=== PATIENT | male | born 1950 | race African-American/Black ===

== ENCOUNTER 2016-07-25 04:57 | Day surgery (SDC) | payer MEDICARE, OTHER ==
[~2016-07-25 04:57] MED LIST: FLOMAX4 PO; LOTENSIN HCT1 TA2 PO; MULTI-VIT HP PO; NEUR300 PO; ULTRAM50 PO; ZOCOR10 PO
== END 2016-07-25 09:59 | disposition home or self-care (01) ==
LOC: SDC 04:57
PROVIDERS: Orthopaedic Surgery
PROC: 3E0R3BZ Introduction of Anesthetic Agent into Spinal Canal, Percutaneous Approach (ICD-10-PCS; 2016-07-25)
PROC: 3E0R33Z Introduction of Anti-inflammatory into Spinal Canal, Percutaneous Approach (ICD-10-PCS; principal; 2016-07-25 08:00)
DX: M54.16 Radiculopathy, lumbar region (principal); E78.00 Pure hypercholesterolemia, unspecified; I10 Essential (primary) hypertension; M19.90 Unspecified osteoarthritis, unspecified site; N40.0 Benign prostatic hyperplasia without lower urinary tract symptoms; Z98.890 Other specified postprocedural states
CPT/HCPCS: J1040; J2250; J3010; Q9967